=== PATIENT | female | born 1975 | race Caucasian/White ===

== ENCOUNTER → 2017-11-26 | Outpatient (CLI) | payer OTHER | LOC: BMCIMAGING 10:05 | PROVIDERS: ATTEND Physician Assistant | DX: R59.0 Localized enlarged lymph nodes (principal) ==

== ENCOUNTER 2018-08-06 21:43 | Observation (INO) | payer OTHER | END 2018-08-07 12:50 | disposition home or self-care (01) | LOC: F3N 08-07 01:33 ==